=== PATIENT | female | born 1970 | race Two or more races ===

== ENCOUNTER 2019-11-20 21:20 | Emergency (ER) | payer BC ==
[~2019-11-20] VITALS: Ht 157.5 cm; Wt 68.9 kg
[2019-11-20 22:23] LABS: Eosinophils # (auto) 0.2 uL; Hemoglobin 7.4 g/dL (12.2-16.2); Monocytes # (auto) 0.5 uL; Nucleated Red Blood Cells % 0.1 %
[2019-11-20 22:26] LABS: Basophils # (auto) 0 uL; Basophils % (auto) 0.6 % (0.0-2.0); Eosinophils % (auto) 2.4 % (0.0-7.0); Hematocrit 24.3 % (36.0-46.0); Lymphocytes # (auto) 2.3 uL; Lymphocytes % (auto) 32.8 % (10.0-50.0); Mean Corpuscular Hemoglobin 19.3 pg (28.0-32.0); Mean Corpuscular Hgb Conc. 30.5 g/dL (32.0-36.0); Mean Corpuscular Volume 63.1 fL (80.0-100.0); Monocytes % (auto) 7.5 % (0.0-12.0); Neutrophils % (auto) 56.7 % (37.0-80.0); Platelet Count (auto) 204 10^3/uL (140-450); Red Blood Cells 3.85 10^6/uL (4.0-5.20); Red Cell Distribution Width 19.1 % (11.8-14.3)
[2019-11-20 22:51] LABS: Calcium 8.5 mg/dL (8.5-10.1); Chloride 110 mmol/L (98-107); Potassium 3.9 mmol/L (3.5-5.1); Sodium 141 mmol/L (136-145)
[2019-11-20 22:54] LABS: Alanine Aminotransferase 32 U/L (13-56); Albumin 3.7 g/dL (3.4-5.0); Anion Gap 10 (5-15); Aspartate Aminotransferase 14 U/L (15-37); BUN/Creatinine Ratio 20.6; Blood Urea Nitrogen 13 mg/dL (7-18); Carbon Dioxide 21 mmol/L (21-32); GFR African American 129 mL/min; GFR Non-African American 107 mL/min; Glucose 89 mg/dL (74-106)
[2019-11-20 23:00] LABS: Alkaline Phosphatase 77 U/L (45-117); Bilirubin, Total 0.3 mg/dL (0.2-1.0); Total Protein 7.3 g/dL (6.4-8.2)
[2019-11-21 02:39] LABS: Urine Bacteria FEW /hpf (None Seen); Urine Blood Negative /uL (Negative); Urine Mucus FEW (None Seen); Urine Specific Gravity 1.018 (1.001-1.035); Urine WBC 1 /hpf (0 - 5)
[2019-11-21] MEDS ORDERED: methylPREDNISolone SOD SUCC 125 MG/2 ML VL IV ONE (03:30)
[2019-11-21 05:54] VITALS: BP 114/58
[2019-11-21 06:09] VITALS: BP 104/57
[2019-11-21 06:54] VITALS: BP 97/51
[2019-11-21] MEDS ORDERED: FERROUS SULFATE 325 MG TAB PO ONE (07:30)
[2019-11-21 08:36] VITALS: BP 92/42
== END 2019-11-21 08:53 | disposition home or self-care (01) ==
LOC: ER 21:26
DX: D64.9 Anemia, unspecified (principal); N93.8 Other specified abnormal uterine and vaginal bleeding; R53.1 Weakness
CPT/HCPCS: 36415; 36430; 80053; 81001; 84484; 85025; 86850; 86900; 86901; 86920; 99285; P9016